=== PATIENT | male | born 1960 | race Caucasian/White ===

== ENCOUNTER 2017-11-18 07:59 | Day surgery (SDC) | payer OTHER ==
[2017-11-15 10:10] VITALS: BMI 30.9
--- NOTE | 2017-11-18 07:14 | HP ---
History & Physical Update - History History: No Change - Physical Physical: No Change - Assessment Assessment: No Change - Plan Plan: No Change (Here today for elective L4-S1 laminectomy.)
[2017-11-18] MEDS ORDERED: oxyCODONE HCL 10 MG SUSTAINED ACTING TABLET PO STA (08:24)
[2017-11-18] MEDS ORDERED: methylPREDNISolone ACET (DEPO) 40 MG/1 ML VIAL ONE (11:17)
[2017-11-18] MEDS ORDERED: LIDOCAINE 1%/EPI 1:100000 (20 ML MULTI DOSE VIAL) ONE (11:17)
[2017-11-18] MEDS ORDERED: GUM MASTIC/STORAX/MSAL/ALCOHOL 1 DRP DROPSBTL MC ONE (11:17)
[2017-11-18] MEDS ORDERED: DEXAMETHASONE SOD PHOSPHATE/PF 10 MG/ML SDV ONE (11:23)
[2017-11-18] MEDS ORDERED: MIDAZOLAM HCL 2 MG/2 ML SINGLE DOSE VIAL ONE (11:23)
[2017-11-18] MEDS ORDERED: BUPIVACAINE HCL/PF (5 MG/ML) 30 ML VIAL IJ ONE (11:24)
[2017-11-18] MEDS ORDERED: ceFAZolin SODIUM 1 GM VIAL ONE (11:56)
[2017-11-18] MEDS ORDERED: DEXAMETHASONE SOD PHOSPHATE 4 MG/1 ML VIAL ONE (11:56)
[2017-11-18] MEDS ORDERED: ONDANSETRON 4 MG/2 ML VIAL ONE (11:58)
[2017-11-18] MEDS ORDERED: LIDOCAINE 1%/EPI 1:100000 (50 ML MULTI DOSE VIAL) INF ONE (12:07)
[2017-11-18] MEDS ORDERED: methylPREDNISolone ACET (DEPO) 40 MG/1 ML VIAL NR ONE (12:43)
[2017-11-18] MEDS ORDERED: THROMBIN (BOVINE) 5,000 UNIT VIAL TP ONE (12:47)
--- NOTE | 2017-11-18 13:39 | OP ---
Operative Note - Note: Operative Date: 11/18/17 Pre-Operative Diagnosis: L4-S1 spinal stenosis with radiculopathy Operation: L4-S1 bilateral laminectomy with microdiscectomy Post-Operative Diagnosis: Same as Pre-op Surgeon: Shady Arauz Tube Splicer: Dennis Anderson Anesthesiologist/BOOT AND SHOE LABORER: Narcisa Mathias Anesthesia: Spinal Estimated Blood Loss (mls): 30 Fluid Volume Replaced (mls): 800 Operative Report Dictated: Yes
--- NOTE | 2017-11-18 13:40 | SURG ---
Surgery Poly Area Supervisor Note Poly Area Supervisor: Dennis Anderson PA-C Date of Service: 11/18/17 Diagnosis: L4-S1 spinal stenosis with radiculopathy Procedure: L4-S1 bilateral laminectomy and microdiscectomy I was present for the entirety of the operative procedure. For further detail, please refer to operative report. Visit type - Case Type Case Type: Scheduled - New patient This patient is new to me today: Yes Date on this admission: 11/18/17
[2017-11-18 14:39] VITALS: TEMP 97.7
[2017-11-18 16:02] VITALS: BP 142/90; PULSE 80
--- NOTE | 2017-11-18 20:31 | OP ---
DATE OF OPERATION: 11/18/2017 PREOPERATIVE DIAGNOSIS: Spinal stenosis L4-L5, L5-S1. POSTOPERATIVE DIAGNOSIS: Spinal stenosis L4-L5, L5-S1. PROCEDURE PERFORMED: Laminectomy L4-L5, L5-S1. SURGEON: Shady Arauz MD PALLETIZER: SHILOH Sharma ESTIMATED BLOOD LOSS: 50 mL. IV FLUIDS: Per Anesthesia. ANESTHESIA: Spinal/TLIP. COMPLICATIONS: There were none. DISPOSITION: The patient was brought to the PACU in stable condition. INDICATIONS FOR SURGERY: The patient is a 57-year-old gentleman who has been suffering from pain from his back down his legs. X-rays and MRI were completed, which noted that he had spinal stenosis at L4-L5, L5-S1. He had gone through an exhaustive course of treatment for this, which included medications, physical therapy as well as injections. Unfortunately, his pain continued to persist despite all this. At this point, risks, benefits, and alternatives were discussed, and the patient consented to surgery. DESCRIPTION OF PROCEDURE: The patient was brought to the operating room by the anesthesia staff. After appropriate patient identification was performed, spinal anesthesia was given along with a TLIP block. The patient was able to position himself prone onto the OR table with all areas and bony prominences well padded at this time. Two needles were placed into his back to joleen off the L4-S1 segments. X-ray was taken to confirm this was correct. The needle was removed, and 10 mL of lidocaine with epinephrine was injected into his back. At this time, his back was prepped and draped in a sterile manner. At this point, a time-out was completed. An incision was made from the top of L4 down to the bottom of S1. Dissection was carried down to the fascia. Fascia was split open at this time, and appropriate retractor was then placed in. A spinal needle was placed into the L4 lamina to joleen off the L4-L5 level. X-ray was taken to confirm this was correct. The needle was removed, and the microscope was brought in. At this point, the interspinous ligament at L4-L5 and L5-S1 was removed. The spinous process at L5 was removed. The lamina of L5 was removed. A complete decompression was performed such that by the end of the procedure the L5 and S1 nerve roots appeared to be well decompressed. All bleeding was well controlled at this time. Steri-Strips was placed over the nerve root. FloSeal was placed over that. The fascia was closed with a No. 1 Vicryl suture. The subcutaneous tissue was closed with 2-0 Vicryl suture. The skin was closed with 3-0 Monocryl suture. Dermabond was applied. Steri-Strips were applied. A sterile dressing was applied. The patient was placed supine on the OR bed and brought to the PACU in stable condition. Jaun PLATT/[id number]
== END 2017-11-18 16:00 | disposition home or self-care (01) ==
LOC: FASU 07:59
PROVIDERS: ATTEND Orthopaedic Surgery Orthopaedic Surgery of the Spine
PROC: 01NB0ZZ Release Lumbar Nerve, Open Approach (ICD-10-PCS; principal; 2017-11-18 12:18)
DX: M48.061 Spinal stenosis, lumbar region without neurogenic claudication (principal); M48.07 Spinal stenosis, lumbosacral region
CPT/HCPCS: 72100-TC-FY; 76000-TC-FY; 94760

== ENCOUNTER 2018-01-20 09:04 | Emergency (ER) | payer OTHER ==
[2018-01-20 09:14] VITALS: BP 132/86; PULSE 80; TEMP 98.1; BMI 29.7
[2018-01-20] MEDS ORDERED: KETOROLAC TROMETHAMINE 60 MG/2 ML VIAL IM ONE (09:51)
[2018-01-20] MEDS ORDERED: KETOROLAC TROMETHAMINE 60 MG/2 ML VIAL ONE (09:56)
--- NOTE | 2018-01-20 09:56 | PDOC ---
History of Present Illness - General Chief Complaint: Chronic pain Stated Complaint: BACK PAIN Time Seen by Provider: 01/20/18 09:40 History Source: Patient Exam Limitations: Clinical Condition - History of Present Illness Initial Comments: 01/20/18 09:51 Patient with history of spinal stenosis at lower lumbar spine status post laminectomy 2 months ago present with complaint of right-sided lower back pain which is worse with heavy lifting and has not improved it 800mg ibuprofen.patient report pain has been worsening since yesterday. pt has f/u apt with orthopedics surgeon in 2 weeks Timing/Duration: other (2 months) Past History - Past Medical History Allergies/Adverse Reactions: Allergies Allergy/AdvReac Type Severity Reaction Status Date / Time shellfish derived Allergy Severe Hives Verified 01/20/18 09:08 Penicillins Allergy Intermediate Rash Verified 01/20/18 09:08 Home Medications: Ambulatory Orders Albuterol 2.5/Ipratropium 0.5 [Duoneb -] 1 neb IH QID 11/15/17 Albuterol Sulfate Inhaler - [Ventolin HFA Inhaler -] 1 puff IH DAILY 11/15/17 Amlodipine Besylate [Norvasc -] 5 mg PO DAILY 11/15/17 Atorvastatin Calcium [Lipitor] 20 mg PO DAILY 11/15/17 Cholecalciferol (Vitamin D3) [Vitamin D3] 50,000 unit PO WEEKLY 11/15/17 Fluticasone/Vilanterol [Breo Ellipta 200-25 Mcg INH] 1 each IH DAILY 11/15/17 Losartan/Hydrochlorothiazide [Hyzaar 100-12.5 Tablet] 1 each PO DAILY 11/15/17 Tiotropium [place] [Spiriva Respimat] 4 gm IH DAILY 11/15/17 Ibuprofen [Ibu] 800 mg PO TID PRN 01/20/18 Methocarbamol [Robaxin -] 500 mg PO TID PRN #21 tablet 01/20/18 Metoclopramide HCl [Reglan] 5 mg PO AC PRN 01/20/18 Naproxen 500 mg PO BID PRN #20 tablet. 01/20/18 Oxycodone HCl/Acetaminophen [Percocet 5-325 mg Tablet] 1 tab PO Q6H #5 tablet MDD 3 01/20/18 Pantoprazole Sodium [Protonix -] 40 mg PO DAILY 01/20/18 Anemia: No Asthma: Yes Cancer: No Cardiac Disorders: No CVA: No COPD: Yes CHF: No Dementia: No Diabetes: No GI Disorders: No Disorders: No HTN: Yes Hypercholesterolemia: Yes Liver Disease: No Seizures: No Thyroid Disease: No - Surgical History Abdominal Surgery: Yes (INGUINAL HERNIA REPAIR 2006) Appendectomy: No Cardiac Surgery: No Cholecystectomy: No Lung Surgery: No Neurologic Surgery: No Orthopedic Surgery: No - Suicide/Smoking/Psychosocial Hx Smoking Status: Yes Smoking History: Former smoker Have you smoked in the past 12 months: No Number of Cigarettes Smoked Daily: 40 Information on smoking cessation initiated: No Hx Alcohol Use: No Drug/Substance Use Hx: No Substance Use Type: None Hx Substance Use Treatment: No Review of Systems - Review of Systems Able to Perform ROS?: Yes Is the patient limited Sudanese proficient: No Constitutional: No: Weakness Respiratory: No: Symptoms reported Cardiac (ROS): No: Symptoms Reported ABD/GI: No: Symptoms Reported, Nausea, Vomiting : No: Symptoms Reported, See HPI, Burning, Dysuria, Discharge, Frequency, Flank Pain, Hematuria, Incontinence, Pain, Urgency, Testicular Mass, Testicular Swelling, Lesions, Testicular Pain, Other Musculoskeletal: Yes: See HPI, Back Pain (right side lower back), Muscle Pain ( right lower back). No: Muscle Weakness, Joint Stiffness Neurological: No: Numbness, Paresthesia, Pre-Existing Deficit, Tingling, Unsteady Gait, Dizziness All Other Systems: Reviewed and Negative *Physical Exam - Vital Signs Last Vital Signs Temp Pulse Resp BP Pulse Ox 98.1 F 80 18 132/86 99 01/20/18 09:12 01/20/18 09:12 01/20/18 09:12 01/20/18 09:12 01/20/18 09:12 - Physical Exam Comments: 01/20/18 11:17 GENERAL: Well developed, well nourished. Awake and alert. mild acute distress. CARDIOVASCULAR: Regular rate and rhythm. No murmurs, rubs, or gallops. PULMONARY: No evidence of respiratory distress. Lungs clear to auscultation bilaterally. No wheezing, rales or rhonchi. ABDOMINAL: Soft. Non-tender. Non-distended. No rebound or guarding. No organomegaly. Normoactive bowel sounds MUSCULOSKELETAL : mild tenderness over posterior paravertebral muscle of right lumbar spine of L5-S2 . No bony deformities EXTREMITIES: No cyanosis. No clubbing. No edema. No calf tenderness. SKIN: Warm and dry. Normal capillary refill. No rashes. No jaundice. NEUROLOGICAL: Alert, awake, appropriate. No motor deficits in the lower extremities. Gait is normal without ataxia. PSYCHIATRIC: Cooperative. Good eye contact. Appropriate mood and affect. General Appearance: Yes: Nourished, Appropriately Dressed, Mild Distress Moderate Sedation - Procedure Monitoring Vital Signs: Procedure Monitoring Vital Signs Temperature 98.1 F 01/20/18 09:12 Pulse Rate 80 01/20/18 09:12 Respiratory Rate 18 01/20/18 09:12 Blood Pressure 132/86 01/20/18 09:12 O2 Sat by Pulse Oximetry (%) 99 01/20/18 09:12 Medical Decision Making - Medical Decision Making 01/20/18 09:54 Patient with history of spinal stenosis at lower lumbar spine status post laminectomy 2 months ago present with complaint of right-sided lower back pain which is worse with heavy lifting and has not improved it 800mg ibuprofen. exam significant for moderate tenderness to right lower paraveterbral muscle of L4-S1. symptoms likely back muscle spasm. Toradol 60mg IM given for pain. pt will be discharged on naproxen and muscle relaxer with orthopedics follow-up *DC/Admit/Observation/Transfer Diagnosis at time of Disposition: Back muscle spasm Lumbago Qualifiers: Chronicity: chronic Back pain laterality: right Sciatica presence: without sciatica Qualified Code(s): M54.5 - Low back pain - Discharge Dispostion Disposition: HOME Condition at time of disposition: Stable Decision to Admit order: No - Prescriptions Prescriptions: Methocarbamol [Robaxin -] 500 mg PO TID PRN #21 tablet PRN Reason: Back Pain Naproxen 500 mg PO BID PRN #20 tablet. PRN Reason: Back Pain Oxycodone HCl/Acetaminophen [Percocet 5-325 mg Tablet] 1 tab PO Q6H #5 tablet MDD 3 - Referrals Referrals: Guanaco Gaxiola [Primary Care Provider] - - Patient Instructions Printed Discharge Instructions: DI for Back Spasm Additional Instructions: take medication as prescribed. apply heat to back 2-3 times/day for 5-10mins. follow-up with physical therapy and orthopedics surgeon as scheduled. use back brace for back support daily while working - Post Discharge Activity
== END 2018-01-20 10:08 | disposition home or self-care (01) ==
LOC: JERFT 09:04
PROC: 3E0233Z Introduction of Anti-inflammatory into Muscle, Percutaneous Approach (ICD-10-PCS; principal; 2018-01-20)
DX: M54.5 Low back pain (principal); M62.830 Muscle spasm of back; J44.9 Chronic obstructive pulmonary disease, unspecified; I10 Essential (primary) hypertension; E78.00 Pure hypercholesterolemia, unspecified
CPT/HCPCS: 99281-25

== ENCOUNTER 2018-03-18 07:00 | Emergency (ER) | payer OTHER ==
[2018-03-18] MEDS ORDERED: KETOROLAC TROMETHAMINE 60 MG/2 ML VIAL IM ONE (07:30)
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
[2018-03-18 07:44] VITALS: BP 140/103; PULSE 84; TEMP 97.5; BMI 31.6
[2018-03-18] MEDS ORDERED: KETOROLAC TROMETHAMINE 60 MG/2 ML VIAL ONE (08:34)
== END 2018-03-18 08:59 | disposition home or self-care (01) ==
LOC: JER 07:00
PROC: 3E0233Z Introduction of Anti-inflammatory into Muscle, Percutaneous Approach (ICD-10-PCS; principal; 2018-03-18)
DX: S39.012A Strain of muscle, fascia and tendon of lower back, initial encounter (principal); V49.49XA Driver injured in collision with other motor vehicles in traffic accident, initial encounter; W22.11XA Striking against or struck by driver side automobile airbag, initial encounter; Y92.414 Local residential or business street as the place of occurrence of the external cause; Y93.89 Activity, other specified; Y99.8 Other external cause status
CPT/HCPCS: 99282-25

== ENCOUNTER 2018-08-07 17:08 | Emergency (ER) | payer OTHER ==
[2018-08-07 17:44] VITALS: BP 117/88; PULSE 90; TEMP 97.8; BMI 26.6
--- NOTE | 2018-08-07 17:47 | PDOC ---
Rapid Medical Evaluation Chief Complaint: Headache Time Seen by Provider: 08/07/18 17:42 Medical Evaluation: Allergies Allergy/AdvReac Type Severity Reaction Status Date / Time shellfish derived Allergy Severe Hives Verified 03/18/18 07:44 Penicillins Allergy Intermediate Rash Verified 03/18/18 07:44 Vital Signs Temp Pulse Resp BP Pulse Ox 97.8 F 90 18 117/88 97 08/07/18 17:42 08/07/18 17:42 08/07/18 17:42 08/07/18 17:42 08/07/18 17:42 08/07/18 17:44 I have performed a brief in-person evaluation of this patient. The patient presents with a chief complaint of: headache occiput - states is worst ever/ no relief with increase with Pertinent physical exam findings: persistant x 2 days , feels weak, I have ordered the following: CtScan Head The patient will proceed to the ED for further evaluation. 08/07/18 17:46 Discharge Disposition - Diagnosis Headache - Referrals - Patient Instructions - Post Discharge Activity
[2018-08-07] MEDS ORDERED: SODIUM CHLORIDE 1,000 ML IV STA (19:46)
[2018-08-07] MEDS ORDERED: ACETAMINOPHEN 1000 MG/100 ML VIAL (NON FORMULARY) IVPB ONE (19:46)
[2018-08-07] MEDS ORDERED: METOCLOPRAMIDE HCL INJECTION 10 MG/2 ML VIAL IVPB ONE (19:46)
[2018-08-07] MEDS ORDERED: METOCLOPRAMIDE HCL INJECTION 10 MG/2 ML VIAL ONE (20:38)
[2018-08-07] MEDS ORDERED: ACETAMINOPHEN INJECTION 100 ML IVPB ONE (20:38)
--- NOTE | 2018-08-07 21:49 | PDOC ---
History of Present Illness - General Chief Complaint: Headache Stated Complaint: HEADACHE & PAIN Time Seen by Provider: 08/07/18 17:42 History Source: Patient Exam Limitations: No Limitations Past History - Past Medical History Allergies/Adverse Reactions: Allergies Allergy/AdvReac Type Severity Reaction Status Date / Time shellfish derived Allergy Severe Hives Verified 08/07/18 17:44 Penicillins Allergy Intermediate Rash Verified 08/07/18 17:44 Home Medications: Ambulatory Orders Albuterol 2.5/Ipratropium 0.5 [Duoneb -] 1 neb IH QID 11/15/17 Albuterol Sulfate Inhaler - [Ventolin HFA Inhaler -] 1 puff IH DAILY 11/15/17 Amlodipine Besylate [Norvasc -] 5 mg PO DAILY 11/15/17 Atorvastatin Calcium [Lipitor] 20 mg PO DAILY 11/15/17 Cholecalciferol (Vitamin D3) [Vitamin D3] 50,000 unit PO WEEKLY 11/15/17 Fluticasone/Vilanterol [Breo Ellipta 200-25 Mcg INH] 1 each IH DAILY 11/15/17 Losartan/Hydrochlorothiazide [Hyzaar 100-12.5 Tablet] 1 each PO DAILY 11/15/17 Tiotropium [place] [Spiriva Respimat] 4 gm IH DAILY 11/15/17 Ibuprofen [Ibu] 800 mg PO TID PRN 01/20/18 Pantoprazole Sodium [Protonix -] 40 mg PO DAILY 01/20/18 Oxycodone HCl/Acetaminophen [Percocet 5-325 mg Tablet] 1 tab PO Q6H PRN MDD 3 Anemia: No Asthma: Yes Cancer: No Cardiac Disorders: No CVA: No COPD: Yes CHF: No Dementia: No Diabetes: No GI Disorders: No Disorders: No HTN: Yes Hypercholesterolemia: Yes Liver Disease: No Seizures: No Thyroid Disease: No - Surgical History Abdominal Surgery: Yes (INGUINAL HERNIA REPAIR 2005) Appendectomy: No Cardiac Surgery: No Cholecystectomy: No Lung Surgery: No Neurologic Surgery: No Orthopedic Surgery: No - Suicide/Smoking/Psychosocial Hx Smoking Status: Yes Smoking History: Never smoked Have you smoked in the past 12 months: No Number of Cigarettes Smoked Daily: 40 Information on smoking cessation initiated: No Hx Alcohol Use: No Drug/Substance Use Hx: No Substance Use Type: None Hx Substance Use Treatment: No *Physical Exam - Vital Signs Last Vital Signs Temp Pulse Resp BP Pulse Ox 97.8 F 90 18 117/88 97 08/07/18 17:42 08/07/18 17:42 08/07/18 17:42 08/07/18 17:42 08/07/18 17:42 - Physical Exam General Appearance: No: Apparent Distress HEENT: positive: EOMI, LAURITA Respiratory/Chest: positive: Lungs Clear, Normal Breath Sounds. negative: Respiratory Distress Cardiovascular: positive: Regular Rhythm, Regular Rate, S1, S2. negative: Murmur Gastrointestinal/Abdominal: positive: Normal Bowel Sounds, Soft. 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 negative : Facial Droop, Sensory Deficit, Confused, Disoriented ED Treatment Course - Medications Given in the ED: ED Medications Discontinued Medications Generic Name Dose Route Start Last Admin Trade Name Jf PRN Reason Stop Dose Admin Acetaminophen 1,000 mg 08/07/18 19:46 08/07/18 20:44 Ofirmev Injection - IVPB 08/07/18 19:47 1,000 mg ONCE ONE Administration Sodium Chloride 1,000 mls @ 1,000 mls/hr 08/07/18 19:46 08/07/18 20:55 Normal Saline - IV 08/07/18 20:45 1,000 mls/hr ASDIR STA Administration Metoclopramide HCl 10 mg 08/07/18 19:46 08/07/18 20:55 Reglan Injection - IVPB 08/07/18 19:47 10 mg ONCE ONE Administration Medical Decision Making - Medical Decision Making 57 y/o M hx of HTN (on Norvasc, Losartan/Hctz), COPD presents with B/L temporal RICO radiating to back, gradual in onset, from yesterday. Took Motrin yesterday with relief of pain, but when RICO returned today and took Motrin again, it did not help this time. Mentions he has had similar HAs in the past and they are usually from elevated BP. Patient saw his PCP yesterday and as his BP was slightly elevated, his Norvasc was increased from 5 mg to 10 mg daily. Patient has not yet filled out the prescription. Denies vomiting, visual/gait changes, numbness/tingling/weakness of extremities, sob, cp, abd pain RICO - similar to prior No focal deficits; unlikely SAH CT head shows no acute findings; incidental findings including sinus disease and artherosclerotic calcifications noted in carotid arteries endorsed to patient; given copy of report to patient Patient given Tylenol, Reglan and IVF; feeling a bit better on reassessment stable for dc 08/07/18 21:44 *DC/Admit/Observation/Transfer Diagnosis at time of Disposition: Headache Qualifiers: Headache type: other headache syndrome Qualified Code(s): G44.89 - Other headache syndrome - Discharge Dispostion Disposition: HOME Condition at time of disposition: Stable Decision to Admit order: No - Referrals Referrals: Guanaco Gaxiola [Primary Care Provider] - 2 Days - Patient Instructions Printed Discharge Instructions: DI for Headache Additional Instructions: Thank you for choosing Health system. It was a pleasure taking care of you. Your CT scan showed no acute findings Follow-up with your doctor regarding incidental findings noted Return to the Emergency Department if your symptoms worsen or persist, you have fever, shortness of breath, chest pain, severe abdominal pain, vomiting, dizziness, weakness of extremities (arms and/or legs), changes in vision or walking or other concerning symptoms. - Post Discharge Activity
== END 2018-08-07 22:04 | disposition home or self-care (01) ==
LOC: JER 17:08 → JERFT 17:08
PROC: 3E033GC Introduction of Other Therapeutic Substance into Peripheral Vein, Percutaneous Approach (ICD-10-PCS; principal; 2018-08-07)
PROC: 3E033NZ Introduction of Analgesics, Hypnotics, Sedatives into Peripheral Vein, Percutaneous Approach (ICD-10-PCS; 2018-08-07)
DX: G44.89 Other headache syndrome (principal); I10 Essential (primary) hypertension; J45.909 Unspecified asthma, uncomplicated; J44.9 Chronic obstructive pulmonary disease, unspecified; E78.00 Pure hypercholesterolemia, unspecified
CPT/HCPCS: 70450-TC; 99281-25; J0131; J7030

== ENCOUNTER 2019-02-16 09:59 | Emergency (ER) | payer OTHER ==
[2019-02-16 10:07] VITALS: BP 121/86; PULSE 79; TEMP 97.8; BMI 30.9
[2019-02-16] MEDS ORDERED: ACETAMINOPHEN 325 MG TABLET (FP) PO ONE (10:37)
--- NOTE | 2019-02-16 10:46 | PDOC ---
History of Present Illness - General Chief Complaint: Back Pain Stated Complaint: LOWER BACK PAIN Time Seen by Provider: 02/16/19 10:13 History Source: Patient - History of Present Illness Occurred: reports: other Pain Location: reports: back Past History - Past Medical History Allergies/Adverse Reactions: Allergies Allergy/AdvReac Type Severity Reaction Status Date / Time shellfish derived Allergy Severe Hives Verified 02/16/19 10:07 Penicillins Allergy Intermediate Rash Verified 02/16/19 10:07 Home Medications: Ambulatory Orders Albuterol 2.5/Ipratropium 0.5 [Duoneb -] 1 neb IH QID 11/15/17 Albuterol Sulfate Inhaler - [Ventolin HFA Inhaler -] 1 puff IH DAILY 11/15/17 Amlodipine Besylate [Norvasc -] 5 mg PO DAILY 11/15/17 Atorvastatin Calcium [Lipitor] 20 mg PO DAILY 11/15/17 Cholecalciferol (Vitamin D3) [Vitamin D3] 50,000 unit PO WEEKLY 11/15/17 Fluticasone/Vilanterol [Breo Ellipta 200-25 Mcg INH] 1 each IH DAILY 11/15/17 Losartan/Hydrochlorothiazide [Hyzaar 100-12.5 Tablet] 1 each PO DAILY 11/15/17 Tiotropium [place] [Spiriva Respimat] 4 gm IH DAILY 11/15/17 Ibuprofen [Ibu] 800 mg PO TID PRN 01/20/18 Pantoprazole Sodium [Protonix -] 40 mg PO DAILY 01/20/18 Oxycodone HCl/Acetaminophen [Percocet 5-325 mg Tablet] 1 tab PO Q6H PRN MDD 3 Acetaminophen [Tylenol -] 1,000 mg PO Q6H #30 tablet 02/16/19 Anemia: No Asthma: Yes Cancer: No Cardiac Disorders: No CVA: No COPD: Yes CHF: No Dementia: No Diabetes: No GI Disorders: No Disorders: No HTN: Yes Hypercholesterolemia: Yes Liver Disease: No Seizures: No Thyroid Disease: No - Surgical History Abdominal Surgery: Yes (INGUINAL HERNIA REPAIR 2005) Appendectomy: No Cardiac Surgery: No Cholecystectomy: No Lung Surgery: No Neurologic Surgery: No Orthopedic Surgery: No - Psycho Social/Smoking Cessation Hx Smoking Status: Yes Smoking History: Current every day smoker Have you smoked in the past 12 months: No Number of Cigarettes Smoked Daily: 10 Information on smoking cessation initiated: No Hx Alcohol Use: No Drug/Substance Use Hx: No Substance Use Type: None Hx Substance Use Treatment: No Review of Systems - Review of Systems Constitutional: No: Chills, Fever ABD/GI: No: Nausea, Vomiting, Abdominal cramping : No: Burning, Dysuria, Discharge, Flank Pain, Hematuria Musculoskeletal: Yes: Back Pain Neurological: No: Numbness, Weakness, Dizziness *Physical Exam - Vital Signs Last Vital Signs Temp Pulse Resp BP Pulse Ox 97.8 F 79 16 121/86 96 02/16/19 10:03 02/16/19 10:03 02/16/19 10:03 02/16/19 10:03 02/16/19 10:03 - Physical Exam General Appearance: Yes: Appropriately Dressed. No: Apparent Distress HEENT: positive: Normal Voice Neck: positive: Supple Respiratory/Chest: negative: Respiratory Distress Gastrointestinal/Abdominal: positive: Soft. negative: Tender Musculoskeletal: negative: CVA Tenderness, Vertebral Tenderness Extremity: positive: Normal Inspection Integumentary: positive: Dry, Warm Neurologic: positive: Fully Oriented, Alert, Normal Mood/Affect, Motor Strength 5/5 Medical Decision Making - Medical Decision Making 02/16/19 10:46 58-year-old male, history of COPD, hypertension here with L mid back pain that started after he sneezed several days ago. Taking 800 mg Motrin with no relief. No acute symptoms nausea vomiting fever or chills. No sensory changes see exam M/l MSK back pain No red flags at this time Exam unremarkable Dose of tylenol given here, pt declined dose of toradol and rx for muscle relaxant, req "oxycodone" and told narcs are not usually given for mild MSK pain -dc to take tylenol 1G as needed -To f/u with PMD if pain persists Discharge - Discharge Information Problems reviewed: Yes Clinical Impression/Diagnosis: Back pain Qualifiers: Back pain location: low back pain Chronicity: acute Back pain laterality: left Sciatica presence: without sciatica Qualified Code(s): M54.5 - Low back pain Condition: Good Disposition: HOME - Additional Discharge Information Prescriptions: Acetaminophen [Tylenol -] 1,000 mg PO Q6H #30 tablet - Follow up/Referral Referrals: Guanaco Gaxiola [Primary Care Provider] - - Patient Discharge Instructions Patient Printed Discharge Instructions: Low Back Pain Additional Instructions: Take tylenol for pain as needed If pain persist, please follow-up with your PMD - Post Discharge Activity
[2019-02-16] MEDS ORDERED: ACETAMINOPHEN 325 MG TABLET (FP) ONE (10:56)
== END 2019-02-16 11:06 | disposition home or self-care (01) ==
LOC: JERFT 09:59
DX: M54.5 Low back pain (principal); I10 Essential (primary) hypertension; J44.9 Chronic obstructive pulmonary disease, unspecified; J45.998 Other asthma; E78.00 Pure hypercholesterolemia, unspecified; F17.210 Nicotine dependence, cigarettes, uncomplicated; Z88.0 Allergy status to penicillin; Z91.013 Allergy to seafood
CPT/HCPCS: 99281-25

== ENCOUNTER 2019-04-17 07:58 | Day surgery (SDC) | payer OTHER ==
[2019-04-16 19:23] VITALS: BMI 29.7
[2019-04-17] MEDS ORDERED: BETAMET ACET/BETAMET NA PH 30 MG/5 ML VIAL ONE (12:49)
[2019-04-17] MEDS ORDERED: PROPOFOL 20 ML ONE (12:56)
[2019-04-17] MEDS ORDERED: MIDAZOLAM HCL 2 MG/2 ML SINGLE DOSE VIAL ONE (12:56)
[2019-04-17] MEDS ORDERED: LIDOCAINE HCL 1%, 10 MG/ML (20ML VIAL) ONE (12:57)
[2019-04-17] MEDS ORDERED: BETAMET ACET/BETAMET NA PH 30 MG/5 ML VIAL IM ONE (13:06)
[2019-04-17] MEDS ORDERED: LIDOCAINE HCL 1%, 10 MG/ML (20ML VIAL) INF ONE (13:07)
[2019-04-17] MEDS ORDERED: BUPIVACAINE HCL/PF 0.25% (2.5MG/ML) 10 ML VIAL IJ ONE (13:08)
[2019-04-17 13:30] VITALS: PULSE 74; TEMP 98.6
[2019-04-17 14:10] VITALS: BP 115/64
--- NOTE | 2019-04-19 21:38 | PROC ---
Procedure Note Procedure: Date: 04/17/2019 Name of the patient: Colin Thakur Preoperative Diagnosis: Low Back pain and Lumbar radiculopathy Postoperative Diagnosis: Same Procedure Performed: Lumbar Epidural steroid injection Transforaminal L4 and L5 on Right in hospital Anesthesia: Local / MAC Procedure: I discussed with the patient in detail about the risks, benefits and alternatives to treatment not only limited to infection, headache, numbness, weakness and injury to nerves, blood vessels and muscles. The patient understood, agreed and signed the written consent. The patient was placed in the prone position with the head, abdomen and legs supported with the pillows. The lumbosacral area was prepped and draped with Betadine times three in a sterile fashion. The Right oblique view under the C-arm at L5- S1 level, with a #25 G, 1-1/2 needle 3 ml of 1% Lidocaine was infiltrated in the skinand subcutaneous tissue. A #22 gauge 5 inch spinal needle was used to approach epidural space via transforaminal approach with intermittent fluoroscopy. After negative aspiration of blood and CSF,Contrast was used to confirm the spread of dye in epidural space. A solution containing 2.5 ml of Celestone mg and 1.5 ml of Marcaine 0.25% total volume 4 ml was prepared, 2 ml was injected into the right L5-S1 level. While the needle was withdrawn, 1 ml of Lidocaine was infiltrated. Similar procedure was repeated at Right L4-5 level. Bleeding was checked. Betadine was wiped off. A sterile bandage was placed. The patient tolerated the procedure well. There were no immediate complications. The patient was transferred to the recovery room. The patient was observed for some time and discharged with a family member as per [facility] criteria. The patient was told to apply ice at the injection site. If there is any problem, call my office or report to ER. ^ Isidro Chance M.D.
== END 2019-04-17 14:24 | disposition home or self-care (01) ==
LOC: JASU-SURG 07:58
PROVIDERS: ATTEND Physical Medicine & Rehabilitation
PROC: 3E0R33Z Introduction of Anti-inflammatory into Spinal Canal, Percutaneous Approach (ICD-10-PCS; 2019-04-17)
PROC: 3E0R3BZ Introduction of Anesthetic Agent into Spinal Canal, Percutaneous Approach (ICD-10-PCS; principal; 2019-04-17 10:30)
DX: M54.16 Radiculopathy, lumbar region (principal); M54.5 Low back pain
CPT/HCPCS: 76000-TC-FY

== ENCOUNTER 2021-06-12 05:32 | Day surgery (SDC) | payer OTHER ==
[2021-06-09 15:37] VITALS: BMI 30.4
[2021-06-12] MEDS ORDERED: PROPOFOL 20 ML ONE ×2 (10:34)
[2021-06-12] MEDS ORDERED: LIDOCAINE 1% P/F 10 MG/ML VIAL INF ONE (10:38)
[2021-06-12] MEDS ORDERED: DEXAMETHASONE SOD PHOSPHATE 10 MG/1 ML VIAL IM ONE (10:39)
[2021-06-12] MEDS ORDERED: BUPIVACAINE HCL/PF 0.25% (2.5MG/ML) 10 ML VIAL IJ ONE (10:39)
[2021-06-12] MEDS ORDERED: DEXAMETHASONE SOD PHOSPHATE 10 MG/1 ML VIAL IVPUSH ONE (10:39)
[2021-06-12 13:52] VITALS: BP 166/88; PULSE 75; TEMP 98.7
== END 2021-06-12 11:50 | disposition home or self-care (01) ==
LOC: JASU-SURG 05:32
PROVIDERS: ATTEND Physical Medicine & Rehabilitation
PROC: 3E0R33Z Introduction of Anti-inflammatory into Spinal Canal, Percutaneous Approach (ICD-10-PCS; 2021-06-12)
PROC: 3E0R3BZ Introduction of Anesthetic Agent into Spinal Canal, Percutaneous Approach (ICD-10-PCS; principal; 2021-06-12 10:00)
DX: M54.16 Radiculopathy, lumbar region (principal); M54.50 Low back pain, unspecified; I10 Essential (primary) hypertension; J44.9 Chronic obstructive pulmonary disease, unspecified
CPT/HCPCS: 76000-TC-FY; J1100

== ENCOUNTER → 2021-10-16 | Day surgery (SDC) | payer OTHER ==
[2021-10-12 10:18] VITALS: BMI 30.4
[~2021-10-16] MED LIST: BUPIVACAINE HCL/PF 0.25% (2.5MG/ML) 10 ML VIAL ONE; BUPIVACAINE HCL/PF 0.5% (5MG/ML) 10 ML VIAL ONE; DEXAMETHASONE SOD PHOSPHATE 10 MG/1 ML VIAL ONE; LIDOCAINE HCL/PF 1% SDV 5ML VIAL ONE
== END | disposition home or self-care (01) ==
LOC: JASU-SURG 04:19
PROVIDERS: ATTEND Physical Medicine & Rehabilitation
DX: Z53.8 Procedure and treatment not carried out for other reasons (principal)
CPT/HCPCS: J1100